=== PATIENT | female | born 1995 | race African-American/Black ===

== ENCOUNTER 2018-09-29 12:00 | Emergency (ER) | payer OTHER ==
[~2018-09-29] VITALS: Ht 147.3 cm; Wt 50.0 kg
[2018-09-29 12:10] VITALS: BP 110/74
== END 2018-09-29 16:27 | disposition left against medical advice (07) ==
LOC: ER 12:00
DX: Z53.21 Procedure and treatment not carried out due to patient leaving prior to being seen by health care provider (principal)